=== PATIENT | male | born 1960 | race Caucasian/White ===

== ENCOUNTER 2018-12-10 13:13 | Emergency (ER) | payer OTHER ==
[~2018-12-10] VITALS: Ht 190.5 cm; Wt 110.0 kg
[2018-12-10 13:20] VITALS: BP 163/91
[2018-12-10] MEDS ORDERED: ketorolac trometh inj. 60 MG/2 ML VIAL IM ONE (14:45)
[2018-12-10] MEDS ORDERED: IBUP-1984 PO (14:55)
[2018-12-10] MEDS ORDERED: HYDR-3965 PO (14:55)
[2018-12-10] MEDS ORDERED: CYCL-1 PO (14:55)
== END 2018-12-10 15:08 | disposition home or self-care (01) ==
LOC: ER 13:14
DX: M54.2 Cervicalgia (principal); I25.10 Atherosclerotic heart disease of native coronary artery without angina pectoris; I10 Essential (primary) hypertension; Z98.61 Coronary angioplasty status; Z79.899 Other long term (current) drug therapy
CPT/HCPCS: 70490; 96372; 99284; J1885